=== PATIENT | female | born 2000 | race Caucasian/White ===

== ENCOUNTER 2025-03-22 18:37 | Emergency (ER) | payer BC ==
[2025-03-22] MEDS ORDERED: Sodium Chloride 0.9% 10 ML Syringe FLUSH PRN (18:45)
[2025-03-22 19:14] LABS: BASOPHILS ABSOLUTE AUTO 0.1 K/mm3 (0.0-0.2); BASOPHILS PERCENT AUTO 0.6 % (0.0-1.0); EOSINOPHILS ABSOLUTE AUTO 1.3 K/mm3 (0.0-0.4); EOSINOPHILS PERCENT AUTO 10.4 % (0.0-6.0); IMMATURE GRAN ABSOLUTE AUTO 0.03 K/mm3 (0.00-0.05); IMMATURE GRAN PERCENT AUTO 0.2 % (0.0-0.4); LYMPHOCYTES ABSOLUTE AUTO 2.9 K/mm3 (1.0-4.8); LYMPHOCYTES PERCENT AUTO 23.0 % (24.0-44.0); MEAN PLATELET VOLUME 9.9 fl (9.4-12.3); MONOCYTES ABSOLUTE AUTO 0.8 K/mm3 (0.0-0.8); MONOCYTES PERCENT AUTO 6.6 % (0.0-8.0); NEUTROPHILS ABSOLUTE AUTO 7.4 K/mm3 (1.8-7.7); NEUTROPHILS PERCENT AUTO 59.2 % (41.0-71.0); NRBC ABSOLUTE 0.00 (0.00-0.02); NRBC PERCENT 0.0 % (0.0-0.2); PLATELET COUNT,PLT 319 K/mm3 (150-400); RED BLOOD CELL COUNT 5.33 M/mm3 (4.10-5.30); WHITE BLOOD CELL COUNT,WBC 12.47 K/mm3 (3.9-11.3)
[2025-03-22 19:40] LABS: A/G RATIO 1.0 (1-2); ALANINE AMINOTRANSFERASE,ALT 39.0 U/L (14-59); ASPARTATE AMNIOTRANSFERASE,AST 16.0 U/L (15-37); BILIRUBIN TOTAL 0.4 mg/dL (0.2-1.0); BLOOD UREA NITROGEN,BUN 15.0 mg/dL (7-18); CARBON DIOXIDE,CO2 28.0 mEq/L (21-32); CHLORIDE,CL 103.0 mEq/L (98-107); CREATININE 0.7 mg/dL (0.55-1.02); EST CRCL DRUG DOSING (CG) 113.43 mL/min; ESTIMATED GFR 125.0 mL/min (>60); GLUCOSE RANDOM 94.0 mg/dL (70-99); PROTEIN TOTAL,TP 7.6 g/dl (6.4-8.2); SODIUM,NA 140.0 mEq/L (136-145); TROPONIN I HIGH SENSITIVITY 5.0 pg/mL (<=51)
[2025-03-22 19:45] LABS: POTASSIUM,K 3.7 mEq/L (3.5-5.1)
== END 2025-03-22 20:55 | disposition home or self-care (01) ==
LOC: JD.ED 18:37
DX: I10 Essential (primary) hypertension (principal); Z79.899 Other long term (current) drug therapy
CPT/HCPCS: 36415; 71045; 80053; 84484; 84703; 85025; 93005; 99284; A9270; 93010; 99283